=== PATIENT | male | born 1960 | race Caucasian/White ===

== ENCOUNTER 2017-06-23 16:24 | Emergency (ER) | payer OTHER ==
[~2017-06-23] VITALS: Ht 180.3 cm; Wt 86.1 kg
[~2017-06-23 16:24] MED LIST: FAMO20TA7 PO; LEVO125T63 PO; OXYC5TAB3 PO
[2017-06-23 16:26] VITALS: BP 109/67
[2017-06-23] MEDS ORDERED: LIDOCAINE 1%, 20ML INFIL ONE (17:30)
== END 2017-06-23 18:07 | disposition home or self-care (01) ==
LOC: ED 18:02
DX: S61.432A Puncture wound without foreign body of left hand, initial encounter (principal); W45.8XXA Other foreign body or object entering through skin, initial encounter; Y93.89 Activity, other specified; Y92.89 Other specified places as the place of occurrence of the external cause; Y99.8 Other external cause status
CPT/HCPCS: 99284